=== PATIENT | male | born 1965 | race Caucasian/White ===

== ENCOUNTER 2017-09-02 20:34 | Emergency (ER) | payer SELFPAY ==
--- NOTE | 2017-09-02 21:20 | RADIOLOGY REPORT (SQ) ---
EXAM DESCRIPTION: WRIST LEFT 3 VIEWS COMPLETED DATE/TIME: 09/02/2017 9:08 pm REASON FOR STUDY: L arm/wrist injury COMPARISON: None. NUMBER OF VIEWS: Three views. TECHNIQUE: AP, lateral, and oblique radiographic images acquired of the left wrist. LIMITATIONS: None. FINDINGS: MINERALIZATION: Normal. BONES: Comminuted fracture of the distal radius is identified with fracture lines extending to the di stal articular surface. No other evidence for fracture is seen. SOFT TISSUES: No soft tissue swelling. No foreign body. OTHER: Degenerative changes are identified at the level the 1st carpal/metacarpal articulation. IMPRESSION: Comminuted fracture of the distal radius as noted above. TECHNICAL DOCUMENTATION: JOB ID: [id number] [employer]- All Rights Reserved
[2017-09-02] MEDS ORDERED: HYDROMORPHONE HCL INJ/PF 2 MG/ML AMPULE IM ONE ×2 (21:31→22:12)
[2017-09-02] MEDS ORDERED: ONDANSETRON 4 MG TAB.RAPDIS PO ONE (21:31)
--- NOTE | 2017-09-02 21:32 | ER Document Report ---
ED Extremity Problem, Upper - General Chief Complaint: Arm Injury Stated Complaint: ARM INJURY Time Seen by Provider: 09/02/17 21:25 Notes: Patient is a 52-year-old male comes emergency department for chief complaint of left wrist injury, he states he was carrying close and he tripped over a broom, he landed with his left hand outstretched on the floor. He denies head injury, back injury, denies any other areas of pain. He is not on a blood thinner. He states initially he waited but pain increased and swelling increased so he came to be evaluated. TRAVEL OUTSIDE OF THE [place] IN LAST 30 DAYS: No Past Medical History - General Information source: Patient - Social History Smoking Status: Never Smoker Drug Abuse: None Lives with: Family Family History: Reviewed & Not Pertinent Review of Systems - Review of Systems Constitutional: No symptoms reported EENT: No symptoms reported Cardiovascular: No symptoms reported Respiratory: No symptoms reported Gastrointestinal: No symptoms reported Genitourinary: No symptoms reported Male Genitourinary: No symptoms reported Musculoskeletal: See HPI Skin: No symptoms reported Hematologic/Lymphatic: No symptoms reported Neurological/Psychological: No symptoms reported Physical Exam - Vital signs Vitals: Temp Pulse Resp BP Pulse Ox 98.2 F 70 22 H 129/93 H 99 09/02/17 20:46 09/02/17 20:46 09/02/17 20:46 09/02/17 20:46 09/02/17 20:46 Interpretation: Normal - General General appearance: Alert, Anxious In distress: Mild - Patient holding his left arm close to his body, appears to be in some pain - HEENT Head: Normocephalic, Atraumatic Eyes: Normal Conjunctiva: Normal Extraocular movements intact: Yes Eyelashes: Normal Pupils: PERRL Nasal: Normal Mouth/Lips: Normal Mucous membranes: Normal Pharynx: Normal Neck: Normal - Respiratory Respiratory status: No respiratory distress Chest status: Nontender Breath sounds: Normal Chest palpation: Normal - Cardiovascular Rhythm: Regular. No: Tachycardia Heart sounds: Normal auscultation, S1 appreciated, S2 appreciated Murmur: No - Abdominal Inspection: Normal Distension: No distension Bowel sounds: Normal Tenderness: Nontender Organomegaly: No organomegaly - Back Back: Normal, Nontender - Extremities General upper extremity: Other - Swelling without obvious deformity in the left forearm area, very tender over the distal radius and ulna, normal radial pulse, normal capillary refill and sensation, normal range of motion of the fingers, normal elbow, shoulder, neck exam. General lower extremity: Normal inspection, Nontender, Normal color, Normal ROM , Normal temperature, Normal weight bearing. No: Navid's sign - Neurological Neuro grossly intact: Yes Cognition: Normal Orientation: AAOx4 Josue Coma Scale Eye Opening: Spontaneous Josue Coma Scale Verbal: Oriented Josue Coma Scale Motor: Obeys Commands Josue Coma Scale Total: 15 Speech: Normal Motor strength normal: LUE, RUE, LLE, RLE Sensory: Normal - Psychological Associated symptoms: Normal affect, Normal mood - Skin Skin Temperature: Warm Skin Moisture: Dry Skin Color: Normal Course - Re-evaluation Re-evalutation: Patient with pain over the left forearm and wrist area, has normal pulses, sensation, range of motion of the fingers, normal capillary refill. Comminuted fracture with no displacement. No other signs of injury, unremarkable physical exam findings otherwise. Immobilizing, providing pain medication, discussed results in detail, patient states he will call and follow-up closely with orthopedics. Discussed return precautions including severe pain or swelling, patient states understanding and agreement. - Vital Signs Vital signs: Temp Pulse Resp BP Pulse Ox 98.2 F 91 18 158/98 H 95 09/02/17 20:46 09/02/17 23:38 09/02/17 23:38 09/02/17 23:38 09/02/17 23:38 Procedures - Immobilization left wrist Pre-Proc Neuro Vasc Exam: Normal Immobilizer type: Sugar tong Performed by: PCT Post-Proc Neuro Vasc Exam: Normal Alignment checked and good: Yes Discharge - Discharge Clinical Impression: Left radial head fracture Qualifiers: Encounter type: initial encounter Fracture type: closed Fracture alignment: nondisplaced Qualified Code(s): S52.125A - Nondisplaced fracture of head of left radius, initial encounter for closed fracture Condition: Stable Disposition: HOME, SELF-CARE Additional Instructions: There is a nondisplaced comminuted fracture of the left radius, the part of your forearm that meets your wrist near the base of the thumb. Wear the splint, take the pain medication if needed, call orthopedics tomorrow to set up your follow-up appointment, see referral. Return the emergency department for any concerning or worsening symptoms including severe pain or swelling. Prescriptions: Morphine Sulfate [Morphine Ir 15 Mg Tablet] 15 mg PO Q4HP PRN #15 tablet PRN Reason: Forms: Return to Work Referrals: MILES SOTELO DO [ACTIVE STAFF] - Follow up tomorrow
[2017-09-02] MEDS ORDERED: HYDROCODONE/ACETAMINOPHEN 5-325 MG 6 TAB/DSPK PO PRN (23:29)
[2017-09-02 23:39] VITALS: BP 158/98
== END 2017-09-02 23:38 | disposition home or self-care (01) ==
LOC: ER 20:34
PROC: 2W3DX1Z Immobilization of Left Lower Arm using Splint (ICD-10-PCS; principal; 2017-09-02)
DX: S52.125A Nondisplaced fracture of head of left radius, initial encounter for closed fracture (principal); W01.0XXA Fall on same level from slipping, tripping and stumbling without subsequent striking against object, initial encounter
CPT/HCPCS: 99283; 96372; 73110; 29125; S0119; J1170

== ENCOUNTER 2017-09-11 12:16 | Day surgery (SDC) | payer SELFPAY ==
[2017-09-10 08:56] LABS: ABSOLUTE BASOPHILS # (AUTO) 0.1 10^3/uL (0.0-0.2); ABSOLUTE EOSINOPHILS # (AUTO) 0.2 10^3/uL (0.0-0.6); ABSOLUTE LYMPHOCYTES (AUTO) 0.9 10^3/uL (0.5-4.7); ABSOLUTE MONOCYTES (AUTO) 0.5 10^3/uL (0.1-1.4); ABSOLUTE NEUT (AUTO) 4.3 10^3/uL (1.7-8.2); BASOPHILS % (AUTO) 0.9 % (0-2); EOSINOPHILS % (AUTO) 3.2 % (0-6); HEMATOCRIT 45.1 % (37.9-51.0); HEMOGLOBIN 15.6 g/dL (13.5-17.0); HGB HCT DIFFERENCE 1.7; LYMPHOCYTES % (AUTO) 15.5 % (13-45); MEAN CORPUSCULAR HEMOGLOBIN 31.5 pg (27.0-33.4); MEAN CORPUSCULAR HGB CONC 34.6 g/dL (32.0-36.0); MEAN CORPUSCULAR VOLUME 91 fl (80-97); MONOCYTES % (AUTO) 7.6 % (3-13); RED BLOOD COUNT 4.94 10^6/uL (4.35-5.55); RED CELL DISTRIBUTION WIDTH 13.6 % (11.5-14.0); SEGMENTED NEUTROPHILS % (AUTO) 72.8 % (42-78); WHITE BLOOD COUNT 5.9 10^3/uL (4.0-10.5)
[2017-09-10 09:00] LABS: APPEARANCE,URINE CLEAR; BILIRUBIN,URINE NEGATIVE (NEGATIVE); GLUCOSE, URINE NEGATIVE (NEGATIVE); KETONES,URINE NEGATIVE (NEGATIVE); LEUKOCYTE ESTERASE,URINE NEGATIVE (NEGATIVE); NITRITE,URINE NEGATIVE (NEGATIVE); PROTEIN,URINE NEGATIVE (NEGATIVE); URINE SPECIFIC GRAVITY 1.012; UROBILINOGEN,URINE NEGATIVE mg/dL (<2.0)
[2017-09-10 09:24] LABS: ANION GAP 10 (5-19); BLOOD UREA NITROGEN 11 mg/dL (7-20); CALCIUM 9.7 mg/dL (8.4-10.2); CARBON DIOXIDE 29 mmol/L (22-30); CHLORIDE 103 mmol/L (98-107); CREATININE RESULT 0.78 mg/dL (0.52-1.25); GLUCOSE 98 mg/dL (75-110); POTASSIUM 5.3 mmol/L (3.6-5.0); SODIUM 142.3 mmol/L (137-145)
--- NOTE | 2017-09-10 10:20 | RADIOLOGY REPORT (SQ) ---
EXAM DESCRIPTION: CHEST PA/LATERAL COMPLETED DATE/TIME: 09/10/2017 9:17 am REASON FOR STUDY: PRE OP COMPARISON: None. TECHNIQUE: Frontal and lateral radiographic views of the chest acquired. NUMBER OF VIEWS: Two view. LIMITATIONS: None. FINDINGS: LUNGS AND PLEURA: No opacities, masses or pneumothorax. No pleural effusion. MEDIASTINUM AND HILAR STRUCTURES: Probable hiatal hernia. No other contour abnormalities. HEART AND VASCULAR STRUCTURES: Heart normal size. No evidence for failure. BONES: No acute findings. HARDWARE: None in the chest. OTHER: No other significant finding. IMPRESSION: NO SIGNIFICANT RADIOGRAPHIC FINDING IN THE CHEST. TECHNICAL DOCUMENTATION: JOB ID: [id number] [employer]- All Rights Reserved
--- NOTE | 2017-09-10 13:13 | EKG REPORT ---
SEVERITY:- ABNORMAL ECG - SINUS RHYTHM ATRIAL PREMATURE COMPLEX LEFT VENTRICULAR HYPERTROPHY CONSIDER INFERIOR INFARCT : Confirmed by: Alon Landaverde MD 10-Sep-2017 13:12:56
[~2017-09-11 12:16] MED LIST: CEFAZOLIN 2 GM/D5W RTU 2 GM/50 ML RTUPB IV PRN; DEXAMETHASONE SOD PHOSPHATE INJ 4 MG/1 ML VIAL ONE; KETOROLAC TROMETHAMINE 60 MG/2 ML SDV ONE; LACTATED RINGERS 1000 ML IV PRN; LIDOCAINE 0.5% INJ-PF (5 MG/ML) 50 ML SDV SUBCUT PRN; SUCCINYLCHOLINE CHLORIDE INJ 200 MG/10 ML VIAL ONE
[2017-09-11] MEDS ORDERED: MORPHINE SULFATE 10 MG/ML INJ ONE (13:35)
[2017-09-11] MEDS ORDERED: BUPIVACAINE HCL 0.5 % INJ/PF 30 ML SDV ONE (16:37)
[2017-09-11] MEDS ORDERED: LIDOCAINE 2% INJ-PF (20 MG/ML) 10 ML AMPUL ONE (17:21)
[2017-09-11] MEDS ORDERED: FENTANYL CITRATE INJ/PF 100 MCG/2 ML AMPUL ONE ×3 (17:21→17:47)
[2017-09-11] MEDS ORDERED: HYDROMORPHONE HCL INJ/PF 2 MG/ML AMPULE ONE (17:21)
[2017-09-11] MEDS ORDERED: ONDANSETRON HCL INJ/PF 4 MG/2 ML SDV ONE (17:22)
[2017-09-11] MEDS ORDERED: PROPOFOL INJ 200 MG/20 ML VIAL IV ONE (17:23)
[2017-09-11] MEDS ORDERED: MIDAZOLAM 2 MG/2 ML INJ ONE (17:31)
[2017-09-11] MEDS ORDERED: DIPHENHYDRAMINE HCL 50 MG/ML VIAL IV PRN (18:53)
[2017-09-11] MEDS ORDERED: OXYCODONE-ACETAMINOPHEN 5-325 MG TABLET PO PRN ×2 (18:53)
[2017-09-11] MEDS ORDERED: MEPERIDINE HCL/PF INJ 25 MG/1 ML DISP.SYRIN IV PRN (18:53)
[2017-09-11] MEDS ORDERED: PROMETHAZINE HCL INJ 25 MG/1 ML VIAL IV PRN ×2 (18:53)
[2017-09-11] MEDS ORDERED: MORPHINE SULFATE 10 MG/ML INJ IV PRN (18:53)
[2017-09-11] MEDS ORDERED: FENTANYL CITRATE INJ/PF 100 MCG/2 ML AMPUL IV PRN ×3 (18:53)
--- NOTE | 2017-09-11 20:02 | Operative Report ---
Operative Report DATE OF SURGERY: 09/11/17 PREOPERATIVE DIAGNOSIS: Left Intra-articular Distal Radius Fracture POSTOPERATIVE DIAGNOSIS: Left 2 Part Intra-articular Distal Radius Fracture OPERATION: ORIF Intra-articular 2 Part Dista Radius SURGEON: MILES SOTELO ANESTHESIA: GA COMPLICATIONS: None ESTIMATED BLOOD LOSS: Minimal PROCEDURE: Indication for above procedure: 52-year-old male who sustained a fall onto his left wrist. Radiographs at the emergency room demonstrated intra-articular distal radius fracture with extension into the radial shaft. At that point we discussed treatment options including operative versus nonoperative intervention. Risks and benefits were explained to the patient patient verbalized understanding and consented for the procedure. Procedure In Detail: Patient was seen and evaluated in the preoperative holding area. The upper extremity was initialized and marked. Patient received 2g of Ancef IV for bacterial prophylaxis. Patient was taken back to the operative room where transferred to the operative table and placed under general anesthesia. Once they were adequately anesthetized and a nonsterile tourniquet was placed on his upper extremity. A surgical team debriefing was performed ensuring all instrumentation was available, the surgical procedure was discussed with possible concerns reviewed. The upper extremity was prepped with chlorhexidine and alcohol and draped in a sterile fashion. A timeout was done identifying correct patient, procedure and extremity everyone in attendance agree with this and verbalized no concerns.The extremity was exsanguinated the tourniquet was inflated to 250 mmHg. A longitudinal skin incision was made via a volar approach of Can along the FCR tendon sheath. The FCR tendon sheath was opened and the FCR retracted ulnarly, the palmar cutaneous branch of the median nerve was identified and protected throughout the entirety of the case. The radial artery was identified and retracted radially. Blunt dissection was performed to the FPL which was carefully sweeped ulnarly. This brought me to the pronator quadratus which was elevated off of the distal radius via sharp dissection with a 15 blade to allow later repair. The fracture line extended proximally thus the incision was extended proximally and the brachioradialis was carefully elevated and the radial artery exposed and retracted. The fracture was then identified. With a reduction tenaculum the longitudinal split was reduced. A interfragmentary 2.7 millimeter screw was placed providing interfragmentary compression and fixation. The articular split was then reduced with a reduction tenaculum and held with a 0.62 K wire. I then placed an Acumed distal radius plate but given the proximal extension patient would require volar distal radius extension plate. Thus the Acumed extension plate was utilized and secured. I then fixated the plate distally with 2 K wires. I then placed a bicortical screw distally securing the plate to the volar cortex to avoid postoperative lecture tendon irritation. The remaining distal screw holes were filled with the appropriate size locking screw during drilling I drilled to but not through the far cortex. Finally fixation of the radial styloid was obtained. C-arm fluoroscopy images were obtained demonstrating appropriate placement of the plate and fixation of the articular segments. Under direct visualization the volar ulnar segment was fixated and secured. I then turned my attention to the proximal aspect. The plate was secured with 3.5 mm cortex screws bringing the plate down to bone proximally. I completed fixation with an additional four bicortical screws. C-arm fluoroscopy was obtained demonstrating jainism of radial height, inclination and volar tilt. Acceptable reduction of the radial shaft portion. Patient had good stability with range of motion of the articular fragments. The wound was copiously irrigated with normal saline. There was no evidence of DRUJ instability on examination, Negative Gaitan's test, No crepitus with range of motion at the radiocarpal joint or DRUJ. I then closed the pronator quadratus with interrupted 3-0 Monocryl suture. Subcutaneous tissues were closed with interrupted 4-0 Monocryl suture. The skin was closed with a running 3-0 nylon suture. 20 mL of 0.5% Marcaine were injected for postoperative pain control. The tourniquet was then deflated. Was dressed with sterile 4 x 4's and patient was placed in a well-padded volar splint with josé miguel wrap. Sponge counts, instrument counts and needle counts were correct. There was no intraoperative complications patient tolerated procedure well stable to PACU. Postoperative plan: Patient will be switched to a removal brace at her first postoperative followup visit and begin range of motion. Patient is encouraged to start vitamin C 500 mg daily for 51 days. Will obtain radiographs at followup of the wrist.
--- NOTE | 2017-09-11 20:03 | PDOC DISCHARGE SUMMARY ---
Discharge Summary (SDC) - Discharge Final Diagnosis: Intra-articular distal radius fracture Date of Surgery: 09/11/17 Discharge Date: 09/11/17 Condition: Good Treatment or Instructions: Schedule Follow Up w/ Dr. Dominik Goodman @ [facility] for Surgery to be seen in 10-14 days or as scheduled [place]: [place]: [place]: Ice and elevate Keep splint clean/dry/intact. If your fingers become numb please unwrap the Cody wrap but leave the splint in place, if the sensation does not return within 30 minutes please return to the emergency department. May begin finger range of motion attempting to make full fist. Please use ibuprofen (Motrin or Advil) 600-800 mg every 8 hours as needed for pain or fever. You may also use acetaminophen (Tylenol) 1000 mg every 4-6 hours as needed for pain or fever. Please be aware that many medications contain acetaminophen, do not exceed a total of 1000 mg of acetaminophen every 6 hours. If ibuprofen and acetaminophen are not sufficient for your pain you may take the Percocet. Please be aware that the Percocet does contain Tylenol. Stool softener of choice when on pain medication. Prescriptions: Oxycodone HCl/Acetaminophen [Percocet 7.5-325 mg Tablet] 1 - 2 tab PO ASDIR PRN #55 tab PRN Reason: Discharge Diet: As Tolerated Respiratory Treatments at Home: Deep Breathing/Coughing, Incentive Spirometer Discharge Activity: No Lifting Over 10 Pounds, No Lifting/Push/Pulling Report the Following to Your Physician Immediately: Fever over 101 Degrees, Unusual Bleeding, Redness, Swelling, Warmth, Increased Soreness, Drainage-Yellow
[2017-09-11] MEDS: MORPHINE SULFATE 10 MG/ML INJ ONE ×2 (20:10→20:20)
[2017-09-11] MEDS ORDERED: KETOROLAC TROMETHAMINE INJ/PF 30 MG/1 ML SDV ONE (21:07)
--- NOTE | 2017-09-11 21:22 | RADIOLOGY REPORT (SQ) ---
EXAM DESCRIPTION: NO CHG FLUORO COMPLETE DATE/TIME: 09/11/2017 8:21 pm REASON FOR STUDY: ORIF LT DISTAL FOREARM S52.532A COLLES' FRACTURE OF LEFT RADIUS, INIT FOR CLOS FX FINDINGS: Please see combined report for performance of procedure and radiologic supervision and int erpretation. IMPRESSION: Please see combined report for performance of procedure and radiologic supervision and i nterpretation.
--- NOTE | 2017-09-11 21:22 | RADIOLOGY REPORT (SQ) ---
EXAM DESCRIPTION: FOREARM LEFT COMPLETED DATE/TIME: 09/11/2017 8:21 pm REASON FOR STUDY: ORIF LT DISTAL FOREARM S52.532A COLLES' FRACTURE OF LEFT RADIUS, INIT FOR CLOS FX COMPARISON: None. FLUOROSCOPY TIME: 30 seconds 6 images saved to PACS. TECHNIQUE: Intra-operative images acquired during surgical procedure to evaluate progress. NUMBER OF IMAGES: 6 images LIMITATIONS: None. FINDINGS: Fluoroscopic images were obtained during internal fixation of the distal left radial fract ure. Orthopedic hardware is identified in position. Please refer to the surgeon's operative report for additional information. IMPRESSION: IMAGE(S) OBTAINED DURING PROCEDURE. COMMENT: Quality ID [id number]: Final reports for procedures using fluoroscopy that document radiation exp osure indices, or exposure time and number of fluorographic images (if radiation exposure indices are not available) Please consult full operative report of the attending physician for description of the procedure. TECHNICAL DOCUMENTATION: JOB ID: [id number] [employer]- All Rights Reserved
[2017-09-11] MEDS: HYDROMORPHONE HCL INJ/PF 2 MG/ML AMPULE IV PRN (22:17)
[2017-09-12] MEDS: HYDROMORPHONE HCL INJ/PF 2 MG/ML AMPULE IV PRN ×5 (00:13→08:18)
[2017-09-12] MEDS: OXYCODONE-ACETAMINOPHEN 5-325 MG TABLET PO PRN ×2 (01:00→07:42)
[2017-09-12 07:54] VITALS: BP 169/98
--- NOTE | 2017-09-12 08:29 | PDOC PROGRESS REPORT ---
Subjective Progress Note for:: 09/12/17 Subjective:: 52-year-old white male 1 day status post open reduction internal fixation of distal radial fracture. Patient was originally supposed to be discharged after surgery however remained in the hospital overnight. Patient reports he was comfortable overnight however this morning reports some pain in the fingers on his left hand as well as discoloration. Patient was informed that this is likely the result of the compression dressing that was placed to help control bleeding postoperatively. Patient was informed that this dressing could be loosened to facilitate decreased pain in the left hand. Reason For Visit: S52.532A COLLES' FRACTURE OF LEFT RADIUS, INIT FOR Physical Exam Vital Signs: Temp Pulse Resp BP Pulse Ox 36.7 C 78 19 169/98 H 98 09/12/17 07:13 09/12/17 07:13 09/12/17 07:13 09/12/17 07:13 09/12/17 07:13 Pulse Oximeter Continuous Start: 09/11/17 23: 23 Freq: Status: Active Document 09/11/17 22:01 LRO (Rec: 09/12/17 03:03 LRO [email or web address]) Pulse Oximetry Assessment Oxygen Saturation (92-100) 100 Oxygen Delivery Method CPAP Fraction of Inspired Oxygen (FIO2) 30 Equipment Usage Initial Set Up Continuous Pulse Oximeter 24 Hour Charge Charge Now Continuous SpO2 Machine # 5 Intake & Output 09/11/17 09/12/17 09/13/17 06:59 06:59 06:59 Intake Total 3117 Output Total 1752 Balance 1365 Weight 88.5 kg 90.4 kg General appearance: PRESENT: no acute distress, well-developed, well-nourished Head exam: PRESENT: atraumatic, normocephalic Respiratory exam: PRESENT: unlabored Pulses: PRESENT: normal dorsalis pedis pul, +2 pedal pulses bilateral Vascular exam: PRESENT: normal capillary refill Extremities exam: PRESENT: tenderness Additional comments: Patient sitting upright in hospital bed with left upper extremity in postoperative compression dressing and splint. This dressing is clean dry and intact. He has brisk capillary refill to fingers on the left hand however noted tenderness to palpation when pressure is applied to test for capillary refill. There is some discoloration to the skin over the fingers on the left hand. This is likely the result of the compression dressing placed to facilitate hemostasis. Otherwise he is appropriate strength range of motion for this stage in the healing process his sensorimotor functions are intact and his distal neurovascular exam is intact. Musculoskeletal exam: PRESENT: tenderness Additional comments: As noted patient is somewhat tender to palpation along the fingers of the left hand however has appropriate strength and range of motion for this stage in healing process. Due to the consultative nature patient's fracture and surgery he may require occupational therapy to improve strength and range of motion of the left wrist. Neurological exam: PRESENT: alert, awake, oriented to person, oriented to place , oriented to time, oriented to situation, CN II-XII grossly intact. ABSENT: motor sensory deficit Psychiatric exam: PRESENT: appropriate affect, normal mood. ABSENT: homicidal ideation, suicidal ideation Skin exam: PRESENT: dry, intact, warm. ABSENT: cyanosis, rash Results Laboratory Results: 09/10/17 08:00 09/11/17 12:42 09/11/17 12:42 Potassium 4.4 Impressions: Chest X-Ray 09/10/17 09:06 IMPRESSION: NO SIGNIFICANT RADIOGRAPHIC FINDING IN THE CHEST. Fluoroscopy 09/11/17 00:00 IMPRESSION: Please see combined report for performance of procedure and radiologic supervision and interpretation. Forearm X-Ray 09/11/17 00:00 IMPRESSION: IMAGE(S) OBTAINED DURING PROCEDURE. Assessment & Plan - Diagnosis (1) Distal radial fracture Qualifiers: Encounter type: subsequent encounter Fracture type: closed Fracture morphology: Colles' Laterality: left Is this a current diagnosis for this admission?: Yes - Plan Summary Plan Summary: 52-year-old white male 1 day status post open reduction internal fixation of distal radius fracture of the left wrist. Patient was supposed to be discharged postoperatively however remain in the hospital overnight. He was comfortable overnight and a post op compression dressing was placed to control postoperative bleeding. As a result patient is experiencing increased swelling and pain in the fingers of the left hand. Nursing staff was notified that this compression dressing canal be loosened and would likely facilitate decreased pain and edema in the fingers of the left hand. As his discharge orders and summary are already placed we will plan for discharge later today. He will follow-up with Dr. Goodman at [facility] surgery 2 weeks postoperatively.
== END 2017-09-12 10:00 | disposition home or self-care (01) ==
LOC: 4W 12:16 → OROUT 12:16
PROVIDERS: ATTEND Orthopaedic Surgery
PROC: 0PSJ04Z Reposition Left Radius with Internal Fixation Device, Open Approach (ICD-10-PCS; principal; 2017-09-11 14:45)
DX: S52.572A Other intraarticular fracture of lower end of left radius, initial encounter for closed fracture (principal); W10.9XXA Fall (on) (from) unspecified stairs and steps, initial encounter; F17.210 Nicotine dependence, cigarettes, uncomplicated; G47.33 Obstructive sleep apnea (adult) (pediatric); K21.9 Gastro-esophageal reflux disease without esophagitis; Z79.899 Other long term (current) drug therapy
CPT/HCPCS: 93005; 36415 ×2; 84132; 85025; 80048; 81001; 71020; 73090; 93010; 94660; 94762; 25608; J2250; J1100; J1885 ×2; J3010; J2270; J1170 ×2; J0330; J2405; J2704; J3490; J0690; 01830